=== PATIENT | male | born 2000 | race Caucasian/White ===

== ENCOUNTER 2024-08-07 05:31 | Emergency (ER) | payer OTHER ==
[~2024-08-07] VITALS: Ht 177.8 cm; Wt 93.1 kg
[2024-08-07 06:16] LABS: BASO % 0.4 % (0.0-1.0); EOS # 0.1 10^3/uL (0.0-0.5); HEMATOCRIT 44.7 % (42.0-52.0); LYMPH # 2.2 10^3/uL (1.5-5.0); LYMPH % 28.5 % (24.0-44.0); MEAN CORPUSCULAR HEMOGLOBIN 31.1 pg (27.0-33.0); MEAN CORPUSCULAR HGB CONC 35.8 g/dl (32.0-36.5); MONO # 0.7 10^3/uL (0.0-0.8); MONO % 9.6 % (2.0-8.0); NEUTROPHILS # 4.6 10^3/uL (1.5-8.5); NEUTROPHILS % 60.2 % (36.0-66.0); PLATELET COUNT, AUTOMATED 228 10^3/uL (150-450); RED BLOOD COUNT 5.14 10^6/uL (4.30-6.10); WHITE BLOOD COUNT 7.7 10^3/uL (4.0-10.0)
[2024-08-07 06:42] LABS: BLOOD UREA NITROGEN 14 MG/DL (9-23); CARBON DIOXIDE LEVEL 23 MMOL/L (20-31); CHLORIDE LEVEL 106 MMOL/L (98-107); CK-MB VALUE MASS < 1.0 NG/ML (<3.6); CPK CREATINE PHOSPHOKINASE 302 U/L (46-171); CREATININE FOR GFR 0.98 MG/DL (0.70-1.30); GLOMERULAR FILTRATION RATE > 90.0 (>60); GLUCOSE, FASTING 98 MG/DL (60-100); MB/CK RELATIVE INDEX 0.33 (< OR =4); POTASSIUM SERUM 3.4 MMOL/L (3.5-5.1); SODIUM LEVEL 141 MMOL/L (136-145)
[2024-08-07 07:59] LABS: CK-MB VALUE MASS < 1.0 NG/ML (<3.6)
[2024-08-07 08:00] LABS: CPK CREATINE PHOSPHOKINASE 292 U/L (46-171); MB/CK RELATIVE INDEX 0.34 (< OR =4)
[2024-08-07 08:15] VITALS: BP 138/65; TEMP 96.8; O2SAT 100
== END 2024-08-07 08:25 | disposition home or self-care (01) ==
LOC: M ED 05:31
DX: R07.9 Chest pain, unspecified (principal); F17.290 Nicotine dependence, other tobacco product, uncomplicated; R00.1 Bradycardia, unspecified

== ENCOUNTER 2024-10-11 07:00 | Emergency (ER) | payer OTHER ==
[~2024-10-11] VITALS: Ht 193 cm; Wt 99.6 kg
[2024-10-11 07:03] VITALS: BP 134/82; TEMP 99.3; O2SAT 95
== END 2024-10-11 09:34 | disposition left against medical advice (07) ==
LOC: M ED 07:00
DX: Z53.21 Procedure and treatment not carried out due to patient leaving prior to being seen by health care provider (principal)